=== PATIENT | male | born 1985 | race African-American/Black ===

== ENCOUNTER 2023-10-21 13:54 | Emergency (ER) | payer OTHER, SELFPAY ==
[2023-10-21 13:59] VITALS: BP 122/81
[2023-10-21] MEDS: TYLENOL 650 MG PO (14:09)
[2023-10-21 14:26] LABS: % Basophils 0.4 % (0-2); % Eosinophils 0.1 % (0-6); % Immature Granulocytes 0.4 % (0-0.5); % Lymphocytes 21.5 % (20.5-51.1); % Neutrophils 69.6 % (42.2-75.2); Absolute Lymphocytes 2.1 10^3/uL (1.2-3.4); Absolute Monocytes 0.8 10^3/uL (0.1-0.6); Absolute Neutrophils 6.9 10^3/uL (1.4-6.5); Hematocrit 43.7 % (39.0-52.0); Hemoglobin 15.6 g/dL (13.0-18.0); Mean Corp Hgb Conc. 35.7 g/dL (33.0-37.0); Mean Corpuscular Hgb 32.6 pg (27.0-31.0); Mean Corpuscular Volume 91.2 fL (80.0-94.0); Nucleated Red Blood Cells % 0 % (-); Platelet Count 230 10^3/uL (130-400); Red Blood Cell Count 4.79 10^6/uL (4.70-6.10); Red Cell Dist. Width 11.8 % (11.5-14.5); White Blood Cell Count 9.9 10^3/uL (4.8-10.8)
[2023-10-21 14:36] LABS: Lactic Acid 1.2 mmol/L (0.7-2.0)
[2023-10-21 14:40] LABS: ALT (SGPT) 25 U/L (0-50); AST (SGOT) 32 U/L (17-59); Albumin 4.8 g/dl (3.5-5.0); Alkaline Phosphatase 88 U/L (38-126); Blood Urea Nitrogen 13 mg/dl (9-20); Calcium 9.6 mg/dl (8.4-10.2); Carbon Dioxide 26 mmol/L (22-30); Chloride 98 mmol/L (98-107); Glucose 140 mg/dl (70-99); Potassium 3.8 mmol/L (3.5-5.1); Sodium 137 mmol/L (135-145); Total Bilirubin 0.6 mg/dl (0.2-1.3); eGFR > 60.00
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
[2023-10-21] MEDS: TORADOL 15 MG IV (17:35)
[2023-10-21] MEDS: NSS 500 IV (17:37)
[2023-10-21 18:00] VITALS: BMI 32.0
[2023-10-21 18:02] LABS: NT-proBNP 35.8 pg/ml; Troponin I < 0.012 ng/ml
[2023-10-21 18:16] VITALS: BP 111/88
[2023-10-21 18:18] LABS: Urine Albumin 2+ (Neg - Trace); Urine Bilirubin 1+ (Negative); Urine Character Clear (Clear); Urine Color Yellow; Urine Glucose Negative (Negative); Urine Ketone 1+ (Negative); Urine Leukocyte Trace (Negative); Urine Nitrite Negative (Negative); Urine Occult Blood Negative (Negative); Urine Urobilinogen 2+ (Neg - 1+)
[2023-10-21 18:33] LABS: Urine Mucus Many
[2023-10-21 18:34] LABS: Urine Bacteria Many (Negative); Urine Red Blood Cell 0-2 /HPF (0-2); Urine White Cell 0-2 /HPF (0-5)
[2023-10-21 19:00] VITALS: BP 108/77
[2023-10-21 19:37] LABS: COVID-19 Antigen Negative (Negative)
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
== END 2023-10-21 20:04 | disposition home or self-care (01) ==
LOC: EMR 13:54
PROVIDERS: Physician Assistant; EMERGENCY PHYSICIAN Emergency Medicine
DX: R50.9 Fever, unspecified (principal); R03.0 Elevated blood-pressure reading, without diagnosis of hypertension; F17.200 Nicotine dependence, unspecified, uncomplicated
CPT/HCPCS: 99285; 96374; 96361; 71046; 80053; 81003; 81015; 83605; 83880; 84484; 85025; 87040; 87086; 87502; 87811; 93005